=== PATIENT | male | born 1930 | race Caucasian/White ===

== ENCOUNTER 2016-11-19 06:33 | Emergency (ER) | payer OTHER ==
[~2016-11-19] VITALS: Ht 180.3 cm; Wt 103.1 kg
[2016-11-19 08:50] LABS: HEMATOCRIT 34.7 % (38.0-50.0); MCH 25.8 PG (29.0-34.0); MCV 80.7 FL (86-99); MEAN PLAT.VOLUME 9.3 uM^3 (9.0-12.4); PLATELET COUNT 351 K/uL (156-360); RBC DIS.WIDTH-CV 14.4 % (11.8-14.6); RBC DIS.WIDTH-SD 42.4 % (39-53); WHITE BLOOD COUNT 15.2 K/uL (4.1-10.2)
[2016-11-19 08:59] LABS: CHLORIDE 104 mEq/L (99-109); POTASSIUM 3.8 mEq/L (3.7-5.4); SODIUM 138 mEq/L (136-147)
[2016-11-19 09:00] LABS: GLUCOSE 193 mg/dL (70-99)
[2016-11-19 09:02] LABS: ANION GAP 10 MEQ/L (2-14)
[2016-11-19 09:04] LABS: GFR ESTIMATE (CALCULATED) > 59 mL/min/
[2016-11-19 09:05] LABS: UREA NITROGEN (BUN) 14 mg/dL (9-23)
[2016-11-19 09:46] LABS: ADD MIUA? NO; BILIRUBIN NEGATIVE; BLOOD NEGATIVE; COLOR YELLOW ((YELLOW)); GLUCOSE (STRIP) NEGATIVE; KETONES NEGATIVE; LEUKOCYTES NEGATIVE; NITRITE NEGATIVE; PROTEIN (STRIP) NEGATIVE; UROBILINOGEN 0.2 MG/DL (0.2-1.0)
[2016-11-19] MEDS ORDERED: NIZORAL 2% CREA15 GM TP (10:57)
[2016-11-19 13:10] VITALS: BP 140/63
[2016-11-20] MEDS ORDERED: NYSTATIN15 GM TP (19:06)
[2016-11-20] MEDS ORDERED: COUMADIN4 MG PO (19:20)
[2016-11-20] MEDS ORDERED: Z-BUM113 GM TP (19:23)
[2016-11-20] MEDS ORDERED: CLARITIN10 M3 PO (19:24)
[2016-11-20] MEDS ORDERED: PROSCAR5 MG PO (19:26)
[2016-11-20] MEDS ORDERED: TYLOPHEN500 MG PO (19:26)
[2016-11-20] MEDS ORDERED: JANUVIA25 MG PO (19:27)
[2016-11-20] MEDS ORDERED: ZESTRIL10 MG PO (19:28)
[2016-11-20] MEDS ORDERED: LYRICA75 MG PO (19:29)
[2016-11-20] MEDS ORDERED: GLUCOPHAGE1000 MG PO (19:30)
[2016-11-20] MEDS ORDERED: ZOLOFT50 MG PO (19:31)
[2016-11-20] MEDS ORDERED: TRAVATAN Z5 ML BOTH EYES (19:32)
[2016-11-20] MEDS ORDERED: ULTRAM50 MG PO (19:32)
[2016-11-20] MEDS ORDERED: ERGOCALCIF50000 UNIT PO (19:36)
[2016-11-20] MEDS ORDERED: COUMADIN1 MG PO (19:37)
== END 2016-11-19 13:55 | disposition home or self-care (01) ==
LOC: EDBD 06:33 → EME 06:33
PROVIDERS: Physician Assistant
DX: S63.502A Unspecified sprain of left wrist, initial encounter (principal); B37.2 Candidiasis of skin and nail; M25.461 Effusion, right knee; W18.30XA Fall on same level, unspecified, initial encounter; Y92.129 Unspecified place in nursing home as the place of occurrence of the external cause; E11.9 Type 2 diabetes mellitus without complications; I10 Essential (primary) hypertension; Z88.0 Allergy status to penicillin
CPT/HCPCS: 73110; 80048; 81003; 85027; 85651; 99281; 99284

== ENCOUNTER 2016-11-20 13:44 | Inpatient (IN) | payer OTHER ==
[~2016-11-20] VITALS: Ht 177.8 cm; Wt 103.4 kg
[~2016-11-20 13:44] MED LIST: NIZORAL 2% CREA15 GM TP
[2016-11-20 15:59] LABS: EOSINOPHIL (%) 0.9 % (0-5); EOSINOPHIL COUNT 0.2 K/uL (0-0.3); IMMATURE GRANULOCYTE (%) 1.3 % (0.0-0.7); IMMATURE GRANULOCYTE COUNT 0.2 K/uL; INSTRUMENT ABS NEUTROPHIL CT 13.9 K/uL; LYMPHOCYTE COUNT 1.3 K/uL (1.0-2.8); MCH 25.7 PG (29.0-34.0); MCHC 31.9 G/DL (30.0-36.0); MCV 80.4 FL (86-99); MEAN PLAT.VOLUME 9.1 uM^3 (9.0-12.4); MONOCYTE (%) 9.6 % (3-12); MONOCYTE COUNT 1.7 K/uL (0-0.8); NEUTROPHIL (%) 80.6 % (45-76); NEUTROPHIL COUNT 13.9 K/uL (1.8-6.4); PLATELET COUNT 364 K/uL (156-360); RBC DIS.WIDTH-CV 14.6 % (11.8-14.6); RBC DIS.WIDTH-SD 42.6 % (39-53); RED BLOOD COUNT 4.48 M/uL (4.00-5.50); WHITE BLOOD COUNT 17.2 K/uL (4.1-10.2)
[2016-11-20 16:10] LABS: CHLORIDE 102 mEq/L (99-109); POTASSIUM 3.8 mEq/L (3.7-5.4); SODIUM 136 mEq/L (136-147)
[2016-11-20 16:11] LABS: GLUCOSE 187 mg/dL (70-99)
[2016-11-20 16:13] LABS: ANION GAP 11 MEQ/L (2-14)
[2016-11-20 16:15] LABS: GFR ESTIMATE (CALCULATED) > 59 mL/min/
[2016-11-20 16:16] LABS: UREA NITROGEN (BUN) 14 mg/dL (9-23)
[2016-11-20 16:20] LABS: TROP-I INTERPRETATION NEGATIVE; TROPONIN-I < 0.01 ng/mL (0.0-0.30)
[2016-11-20 16:56] LABS: ADD MIUA? YES; BILIRUBIN NEGATIVE; BLOOD SMALL; COLOR AMBER ((YELLOW)); GLUCOSE (STRIP) NEGATIVE; KETONES NEGATIVE; LEUKOCYTES MODERATE; NITRITE NEGATIVE; PROTEIN (STRIP) 100; SPECIFIC GRAVITY 1.023 (1.000-1.030)
[2016-11-20 17:38] LABS: BACTERIA 3+ /HPF; EPITHELIAL CELLS RARE /HPF; MUCUS 4+ /LPF; RED BLOOD CELLS 0-5 /HPF (0-5); WHITE BLOOD CELLS TNTC /HPF (0-5); WHITE BLOOD CELLS CLUMP MANY /HPF (0-5)
[2016-11-20] MEDS ORDERED: NYSTATIN15 GM TP (19:06)
[2016-11-20] MEDS ORDERED: COUMADIN4 MG PO (19:20)
[2016-11-20] MEDS ORDERED: Z-BUM113 GM TP (19:23)
[2016-11-20] MEDS ORDERED: CLARITIN10 M3 PO (19:24)
[2016-11-20] MEDS ORDERED: TYLOPHEN500 MG PO (19:26)
[2016-11-20] MEDS ORDERED: PROSCAR5 MG PO (19:26)
[2016-11-20] MEDS ORDERED: JANUVIA25 MG PO (19:27)
[2016-11-20] MEDS ORDERED: ZESTRIL10 MG PO (19:28)
[2016-11-20] MEDS ORDERED: LYRICA75 MG PO (19:29)
[2016-11-20] MEDS ORDERED: GLUCOPHAGE1000 MG PO (19:30)
[2016-11-20] MEDS ORDERED: ZOLOFT50 MG PO (19:31)
[2016-11-20] MEDS ORDERED: ULTRAM50 MG PO (19:32)
[2016-11-20] MEDS ORDERED: TRAVATAN Z5 ML BOTH EYES (19:32)
[2016-11-20] MEDS ORDERED: ERGOCALCIF50000 UNIT PO (19:36)
[2016-11-20] MEDS ORDERED: COUMADIN1 MG PO (19:37)
[2016-11-20 19:39] LABS: TOTAL BILIRUBIN 0.4 mg/dL (0.0-1.0)
[2016-11-20 19:40] LABS: ALKALINE PHOSPHATASE 91 IU/L (3-129)
[2016-11-20 19:43] LABS: DIRECT BILIRUBIN 0.3 mg/dL (0.0-0.3)
[2016-11-20 19:48] LABS: PROTHROMBIN TIME 106.6 SEC (10.2-12.9)
[2016-11-20 19:53] LABS: INTER. NORMALIZED RATIO 8.9
[2016-11-20 20:02] LABS: CARBON DIOXIDE (BICARBONATE) 24.1 MEQ/L (20-31)
[2016-11-20 20:43] LABS: URIC ACID 4.3 mg/dL (3.1-9.2)
[2016-11-20 22:19] LABS: POINT-OF-CARE USER ID BHSKTD
[2016-11-20 23:41] VITALS: BP 139/65
[2016-11-21 03:36] VITALS: BP 137/63
[2016-11-21 07:14] LABS: ANION GAP 12 MEQ/L (2-14); CHLORIDE 104 MEQ/L (99-109); GFR ESTIMATE (CALCULATED) > 59 mL/min/; GLUCOSE 162 mg/dL (70-99); POTASSIUM 3.9 MEQ/L (3.7-5.4); SAMPLE HEMOLYSIS CHECK 0; SAMPLE ICTERIC CHECK 0; SAMPLE LIPEMIA CHECK 0; SODIUM 139 MEQ/L (136-147); UREA NITROGEN (BUN) 10 mg/dL (9-23)
[2016-11-21 07:47] LABS: BASOPHIL COUNT 0.1 K/uL (0-0.1); EOSINOPHIL (%) 1.9 % (0-5); EOSINOPHIL COUNT 0.2 K/uL (0-0.3); HEMATOCRIT 32.9 % (38.0-50.0); IMMATURE GRANULOCYTE (%) 1.2 % (0.0-0.7); IMMATURE GRANULOCYTE COUNT 0.2 K/uL; INSTRUMENT ABS NEUTROPHIL CT 9.7 K/uL; LYMPHOCYTE COUNT 1.2 K/uL (1.0-2.8); MCH 26.5 PG (29.0-34.0); MCHC 32.5 G/DL (30.0-36.0); MCV 81.4 FL (86-99); MEAN PLAT.VOLUME 9.9 uM^3 (9.0-12.4); MONOCYTE (%) 9.7 % (3-12); MONOCYTE COUNT 1.2 K/uL (0-0.8); NEUTROPHIL (%) 77.1 % (45-76); NEUTROPHIL COUNT 9.7 K/uL (1.8-6.4); PLATELET COUNT 308 K/uL (156-360); RBC DIS.WIDTH-CV 14.6 % (11.8-14.6); RBC DIS.WIDTH-SD 43.1 % (39-53); RED BLOOD COUNT 4.04 M/uL (4.00-5.50); WHITE BLOOD COUNT 12.5 K/uL (4.1-10.2)
[2016-11-21 08:44] VITALS: BP 142/70
[2016-11-21 11:24] VITALS: BP 144/78
[2016-11-21 13:06] LABS: POINT-OF-CARE METER ID UU13113717
[2016-11-21 16:17] VITALS: BP 139/77
[2016-11-21 18:21] LABS: APPEARANCE HAZY-YELLOW; MONONUCLEAR WBC'S 11 %; POLYNUCLEAR WBC'S 89 % (0-25); RED CELL COUNT 4000 /MM^3 (0-1); SYNOVIAL FLUID EOSINOPHILS 0 % (0-25); WHITE CELL COUNT 44590 /MM^3 (0-200.0)
[2016-11-21 19:21] VITALS: BP 124/71
[2016-11-21 20:51] LABS: POINT-OF-CARE METER ID UU13113717
[2016-11-21 23:55] VITALS: BP 110/67
[2016-11-22 04:14] VITALS: BP 140/81
[2016-11-22 07:17] LABS: CRYSTALS NO CRYSTALS SEEN
[2016-11-22 08:09] VITALS: BP 125/63
[2016-11-22 08:23] LABS: POINT-OF-CARE METER ID UU14174225
[2016-11-22 10:00] LABS: HEMATOCRIT 31.9 % (38.0-50.0); MCV 81.2 FL (86-99); MEAN PLAT.VOLUME 9.4 uM^3 (9.0-12.4); PLATELET COUNT 304 K/uL (156-360); RBC DIS.WIDTH-CV 14.6 % (11.8-14.6); RBC DIS.WIDTH-SD 43.6 % (39-53); RED BLOOD COUNT 3.93 M/uL (4.00-5.50); WHITE BLOOD COUNT 11.3 K/uL (4.1-10.2)
[2016-11-22 10:21] LABS: ANION GAP 9 MEQ/L (2-14); CHLORIDE 101 MEQ/L (99-109); GFR ESTIMATE (CALCULATED) > 59 mL/min/; GLUCOSE 201 mg/dL (70-99); POTASSIUM 3.6 MEQ/L (3.7-5.4); SAMPLE HEMOLYSIS CHECK 0; SAMPLE ICTERIC CHECK 0; SAMPLE LIPEMIA CHECK 0; SODIUM 134 MEQ/L (136-147); UREA NITROGEN (BUN) 9 mg/dL (9-23)
[2016-11-22 10:24] LABS: INTER. NORMALIZED RATIO 1.8
[2016-11-22 10:47] LABS: PROTHROMBIN TIME 20.6 SEC (10.2-12.9)
[2016-11-22 11:49] VITALS: BP 112/67
[2016-11-22 12:17] LABS: ERTH.SED.RATE 81 MM/HR (0-20)
[2016-11-22 14:53] LABS: C-REACTIVE PROTEIN 169.6 MG/L (0-10)
[2016-11-22 16:15] VITALS: BP 128/70
[2016-11-22 17:04] LABS: POINT-OF-CARE METER ID UU14188625
[2016-11-22 19:51] VITALS: BP 135/69
[2016-11-22 20:37] LABS: POINT-OF-CARE METER ID UU14188625
[2016-11-22 22:07] LABS: POINT-OF-CARE METER ID UU14188625
[2016-11-23 00:42] VITALS: BP 108/53
[2016-11-23 08:27] VITALS: BP 110/74
[2016-11-23 10:46] LABS: ANION GAP 9 MEQ/L (2-14); CHLORIDE 97 MEQ/L (99-109); GFR ESTIMATE (CALCULATED) > 59 mL/min/; GLUCOSE 278 mg/dL (70-99); MAGNESIUM 1.2 mg/dl (1.3-2.7); POTASSIUM 4.1 MEQ/L (3.7-5.4); SAMPLE HEMOLYSIS CHECK 0; SAMPLE ICTERIC CHECK 0; SAMPLE LIPEMIA CHECK 0; SODIUM 131 MEQ/L (136-147); UREA NITROGEN (BUN) 9 mg/dL (9-23)
[2016-11-23 12:09] LABS: INTER. NORMALIZED RATIO 1.9; PROTHROMBIN TIME 21.4 SEC (10.2-12.9)
[2016-11-23 12:14] LABS: POINT-OF-CARE METER ID UU14188625
[2016-11-23 13:51] LABS: HEMATOCRIT 31.8 % (38.0-50.0); MCH 25.8 PG (29.0-34.0); MCHC 31.8 G/DL (30.0-36.0); MCV 81.1 FL (86-99); MEAN PLAT.VOLUME 10.1 uM^3 (9.0-12.4); PLATELET COUNT 300 K/uL (156-360); RBC DIS.WIDTH-CV 14.6 % (11.8-14.6); RBC DIS.WIDTH-SD 42.5 % (39-53); RED BLOOD COUNT 3.92 M/uL (4.00-5.50); WHITE BLOOD COUNT 12.3 K/uL (4.1-10.2)
[2016-11-23 16:04] VITALS: BP 112/65
[2016-11-23 17:40] LABS: POINT-OF-CARE METER ID UU14174225
[2016-11-23 21:07] VITALS: BP 124/64
[2016-11-23 21:36] LABS: POINT-OF-CARE METER ID UU14174225
[2016-11-24] VITALS (7 sets, daily range): BP systolic 127–147; BP diastolic 64–77
[2016-11-24 06:07] LABS: EOSINOPHIL COUNT 0.3 K/uL (0-0.3); HEMATOCRIT 29.7 % (38.0-50.0); IMMATURE GRANULOCYTE (%) 1.3 % (0.0-0.7); IMMATURE GRANULOCYTE COUNT 0.1 K/uL; INSTRUMENT ABS NEUTROPHIL CT 8.3 K/uL; MCH 26.9 PG (29.0-34.0); MCHC 33.7 G/DL (30.0-36.0); MCV 79.8 FL (86-99); MEAN PLAT.VOLUME 9.7 uM^3 (9.0-12.4); MONOCYTE (%) 10.2 % (3-12); MONOCYTE COUNT 1.1 K/uL (0-0.8); NEUTROPHIL (%) 76.3 % (45-76); NEUTROPHIL COUNT 8.3 K/uL (1.8-6.4); PLATELET COUNT 285 K/uL (156-360); RBC DIS.WIDTH-CV 14.5 % (11.8-14.6); RED BLOOD COUNT 3.72 M/uL (4.00-5.50); WHITE BLOOD COUNT 10.8 K/uL (4.1-10.2)
[2016-11-24 06:19] LABS: INTER. NORMALIZED RATIO 1.9; PROTHROMBIN TIME 21.2 SEC (10.2-12.9)
[2016-11-24 06:36] LABS: ALKALINE PHOSPHATASE 112 IU/L (3-129); ANION GAP 8 MEQ/L (2-14); CHLORIDE 100 MEQ/L (99-109); GFR ESTIMATE (CALCULATED) > 59 mL/min/; GLUCOSE 195 mg/dL (70-99); POTASSIUM 3.8 MEQ/L (3.7-5.4); SAMPLE HEMOLYSIS CHECK 0; SAMPLE ICTERIC CHECK 0; SAMPLE LIPEMIA CHECK 0; SODIUM 131 MEQ/L (136-147); TOTAL BILIRUBIN 0.6 MG/DL (0.0-1.0); UREA NITROGEN (BUN) 10 mg/dL (9-23)
[2016-11-24 07:30] LABS: POINT-OF-CARE METER ID UU14188625
[2016-11-24 12:06] LABS: APPEARANCE HAZY-YELLOW; MONONUCLEAR WBC'S 1 %; POLYNUCLEAR WBC'S 99 % (0-25); RED CELL COUNT 7000 /MM^3 (0-1); SYNOVIAL FLUID EOSINOPHILS 0 % (0-25); WHITE CELL COUNT 7373 /MM^3 (0-200.0)
[2016-11-25 03:42] VITALS: BP 133/71
[2016-11-25 06:47] LABS: EOSINOPHIL (%) 3.5 % (0-5); EOSINOPHIL COUNT 0.3 K/uL (0-0.3); HEMATOCRIT 30.4 % (38.0-50.0); IMMATURE GRANULOCYTE COUNT 0.1 K/uL; INSTRUMENT ABS NEUTROPHIL CT 6.5 K/uL; LYMPHOCYTE COUNT 0.8 K/uL (1.0-2.8); MCH 26.6 PG (29.0-34.0); MCHC 32.9 G/DL (30.0-36.0); MCV 80.9 FL (86-99); MEAN PLAT.VOLUME 9.5 uM^3 (9.0-12.4); MONOCYTE (%) 10.4 % (3-12); MONOCYTE COUNT 0.9 K/uL (0-0.8); NEUTROPHIL (%) 75.7 % (45-76); NEUTROPHIL COUNT 6.5 K/uL (1.8-6.4); PLATELET COUNT 271 K/uL (156-360); RBC DIS.WIDTH-CV 14.7 % (11.8-14.6); RBC DIS.WIDTH-SD 43.6 % (39-53); RED BLOOD COUNT 3.76 M/uL (4.00-5.50); WHITE BLOOD COUNT 8.6 K/uL (4.1-10.2)
[2016-11-25 06:57] LABS: PROTHROMBIN TIME 22.9 SEC (10.2-12.9)
[2016-11-25 07:13] LABS: ALKALINE PHOSPHATASE 120 IU/L (3-129); ANION GAP 8 MEQ/L (2-14); CHLORIDE 100 MEQ/L (99-109); GFR ESTIMATE (CALCULATED) > 59 mL/min/; GLUCOSE 180 mg/dL (70-99); POTASSIUM 3.7 MEQ/L (3.7-5.4); SAMPLE HEMOLYSIS CHECK 0; SAMPLE ICTERIC CHECK 0; SAMPLE LIPEMIA CHECK 0; SODIUM 133 MEQ/L (136-147); UREA NITROGEN (BUN) 9 mg/dL (9-23)
[2016-11-25 07:14] LABS: TOTAL BILIRUBIN 0.4 MG/DL (0.0-1.0)
[2016-11-25 07:38] LABS: POINT-OF-CARE METER ID UU14188625
[2016-11-25 07:39] VITALS: BP 139/75
[2016-11-25 11:11] LABS: IMM.RETIC FRACTION 24.5 % (3-19); RETIC HGB EQUIVALENT 27.5 (28-36); RETICULOCYTE COUNT 1.6 % (0.5-1.8)
[2016-11-25 11:19] LABS: POINT-OF-CARE METER ID UU14188625
[2016-11-25 11:23] VITALS: BP 141/87
[2016-11-25 11:30] LABS: FERRITIN 803 NG/ML (22-322); IRON 14 MCG/DL (35-150); MAGNESIUM 1.6 mg/dl (1.3-2.7)
[2016-11-25 15:30] VITALS: BP 174/84
[2016-11-25 19:43] VITALS: BP 133/74
[2016-11-25 21:10] LABS: POINT-OF-CARE METER ID UU14188625
[2016-11-26] VITALS (7 sets, daily range): BP systolic 124–150; BP diastolic 65–85
[2016-11-26 05:53] LABS: EOSINOPHIL (%) 0 % (0-5); HEMATOCRIT 31.6 % (38.0-50.0); IMMATURE GRANULOCYTE (%) 0.6 % (0.0-0.7); INSTRUMENT ABS NEUTROPHIL CT 5.4 K/uL; LYMPHOCYTE COUNT 0.5 K/uL (1.0-2.8); MCH 26.3 PG (29.0-34.0); MCHC 32.3 G/DL (30.0-36.0); MCV 81.4 FL (86-99); MEAN PLAT.VOLUME 9.8 uM^3 (9.0-12.4); MONOCYTE (%) 5.6 % (3-12); MONOCYTE COUNT 0.4 K/uL (0-0.8); NEUTROPHIL (%) 85.5 % (45-76); NEUTROPHIL COUNT 5.4 K/uL (1.8-6.4); PLATELET COUNT 281 K/uL (156-360); RBC DIS.WIDTH-CV 14.7 % (11.8-14.6); RBC DIS.WIDTH-SD 43.1 % (39-53); RED BLOOD COUNT 3.88 M/uL (4.00-5.50); WHITE BLOOD COUNT 6.3 K/uL (4.1-10.2)
[2016-11-26 06:29] LABS: INTER. NORMALIZED RATIO 2.4; PROTHROMBIN TIME 27.1 SEC (10.2-12.9)
[2016-11-26 06:45] LABS: ALKALINE PHOSPHATASE 139 IU/L (3-129); ANION GAP 9 MEQ/L (2-14); CHLORIDE 102 MEQ/L (99-109); GFR ESTIMATE (CALCULATED) > 59 mL/min/; SAMPLE HEMOLYSIS CHECK 0; SAMPLE ICTERIC CHECK 0; SAMPLE LIPEMIA CHECK 0; SODIUM 133 MEQ/L (136-147); TOTAL BILIRUBIN 0.4 MG/DL (0.0-1.0); UREA NITROGEN (BUN) 16 mg/dL (9-23)
[2016-11-26 06:48] LABS: GLUCOSE 279 mg/dL (70-99); POTASSIUM 4.6 MEQ/L (3.7-5.4)
[2016-11-26 11:39] LABS: Estimated Average Glucose 197 mg/dL (70-123); HEMOGLOBIN A1c (GLYCOHEMOGLOB) 8.5 % HGB (Below 5.7)
[2016-11-26 16:10] LABS: POINT-OF-CARE METER ID UU13113717
[2016-11-26 21:46] LABS: POINT-OF-CARE METER ID UU13113717
[2016-11-27 03:58] VITALS: BP 143/86
[2016-11-27 06:41] LABS: EOSINOPHIL (%) 1.2 % (0-5); EOSINOPHIL COUNT 0.1 K/uL (0-0.3); HEMATOCRIT 30.9 % (38.0-50.0); IMMATURE GRANULOCYTE COUNT 0.1 K/uL; LYMPHOCYTE COUNT 1.1 K/uL (1.0-2.8); MCH 25.5 PG (29.0-34.0); MCHC 31.1 G/DL (30.0-36.0); MEAN PLAT.VOLUME 9.8 uM^3 (9.0-12.4); MONOCYTE (%) 8.3 % (3-12); MONOCYTE COUNT 0.9 K/uL (0-0.8); NEUTROPHIL (%) 78.1 % (45-76); PLATELET COUNT 329 K/uL (156-360); RBC DIS.WIDTH-CV 14.8 % (11.8-14.6); RBC DIS.WIDTH-SD 44.1 % (39-53); RED BLOOD COUNT 3.77 M/uL (4.00-5.50); WHITE BLOOD COUNT 10.2 K/uL (4.1-10.2)
[2016-11-27 07:05] LABS: INTER. NORMALIZED RATIO 3.2; PROTHROMBIN TIME 37.3 SEC (10.2-12.9)
[2016-11-27 07:12] LABS: ALKALINE PHOSPHATASE 109 IU/L (3-129); ANION GAP 10 MEQ/L (2-14); C-REACTIVE PROTEIN 56.1 MG/L (0-10); CHLORIDE 100 MEQ/L (99-109); GFR ESTIMATE (CALCULATED) > 59 mL/min/; GLUCOSE 202 mg/dL (70-99); POTASSIUM 4.2 MEQ/L (3.7-5.4); SAMPLE HEMOLYSIS CHECK 0; SAMPLE ICTERIC CHECK 0; SAMPLE LIPEMIA CHECK 0; SODIUM 134 MEQ/L (136-147); UREA NITROGEN (BUN) 19 mg/dL (9-23)
[2016-11-27 07:13] LABS: TOTAL BILIRUBIN 0.3 MG/DL (0.0-1.0)
[2016-11-27 07:57] VITALS: BP 157/78
[2016-11-27 08:20] LABS: POINT-OF-CARE METER ID UU14188625
[2016-11-27 11:21] VITALS: BP 154/72
[2016-11-27] MEDS ORDERED: Lidoderm 5% Patch TD (12:03)
[2016-11-27] MEDS ORDERED: PREDNISONE10 MG PO (12:04)
[2016-11-27 16:02] VITALS: BP 155/77
== END 2016-11-27 16:58 | DRG 872 ==
LOC: EME 13:44 → 5SOUTH 19:23 → EDOF 19:23 → ENRESERV 19:27 → 5SOUTH 20:58
PROVIDERS: Emergency Medicine; Hospitalist; Internal Medicine; Orthopaedic Surgery; Physician Assistant; Physician Assistant Medical
PROC: 0S9C3ZZ Drainage of Right Knee Joint, Percutaneous Approach (ICD-10-PCS; principal; 2016-11-21)
DX: A41.9 Sepsis, unspecified organism (principal); N39.0 Urinary tract infection, site not specified; D68.9 Coagulation defect, unspecified; I48.2 Chronic atrial fibrillation; E11.65 Type 2 diabetes mellitus with hyperglycemia; D64.9 Anemia, unspecified; E86.0 Dehydration; B37.9 Candidiasis, unspecified; N40.0 Benign prostatic hyperplasia without lower urinary tract symptoms; I50.9 Heart failure, unspecified; I11.0 Hypertensive heart disease with heart failure; L89.212 Pressure ulcer of right hip, stage 2; B36.9 Superficial mycosis, unspecified; J98.11 Atelectasis; E78.5 Hyperlipidemia, unspecified; M17.11 Unilateral primary osteoarthritis, right knee; W19.XXXA Unspecified fall, initial encounter; I45.10 Unspecified right bundle-branch block; J32.0 Chronic maxillary sinusitis; F03.90 Unspecified dementia, unspecified severity, without behavioral disturbance, psychotic disturbance, mood disturbance, and anxiety; M11.261 Other chondrocalcinosis, right knee; M06.4 Inflammatory polyarthropathy; H40.9 Unspecified glaucoma; Z79.4 Long term (current) use of insulin; Z79.01 Long term (current) use of anticoagulants; Z79.84 Long term (current) use of oral hypoglycemic drugs; Z79.899 Other long term (current) drug therapy; Z72.0 Tobacco use; Z95.0 Presence of cardiac pacemaker; Z68.33 Body mass index [BMI] 33.0-33.9, adult
CPT/HCPCS: 70450; 70496; 70498; 71010; 73110; 73502; 73552; 73564; 73590; 80048; 80053; 80076; 81003; 82607; 82728; 82746; 82803; 82948; 83036; 83540; 83605; 83735; 84466; 84484; 84550; 85025; 85027; 85045; 85610; 85651; 86140; 87040; 87086; 87205; 89051; 92610 GN; 93005; 99281; 99284; 99285; J0696; J1815; J2270; J2920; J3430; J3475; J7030; J7050; J7120; J7512

== ENCOUNTER 2017-08-04 18:49 | Emergency (ER) | payer OTHER ==
[~2017-08-04] VITALS: Ht 180.3 cm; Wt 96.0 kg
[~2017-08-04 18:49] MED LIST changes: +CLARITIN10 M3 PO; +COUMADIN1 MG PO; +COUMADIN4 MG PO; +ERGOCALCIF50000 UNIT PO; +GLUCOPHAGE1000 MG PO; +JANUVIA25 MG PO; +LYRICA75 MG PO; +Lidoderm 5% Patch TD; +NYSTATIN15 GM TP; +PREDNISONE10 MG PO; +PROSCAR5 MG PO; +TRAVATAN Z5 ML BOTH EYES; +TYLOPHEN500 MG PO; +ULTRAM50 MG PO; +Z-BUM113 GM TP; +ZESTRIL10 MG PO; +ZOLOFT50 MG PO
[2017-08-04] MEDS ORDERED: ZOLOFT25 MG PO (19:55)
[2017-08-04] MEDS ORDERED: PRENATAL TABLE1 EAC3 PO (19:55)
[2017-08-04] MEDS ORDERED: FEOSOL325 MG PO (19:56)
[2017-08-04] MEDS ORDERED: GLUCOPHAGE500 MG PO (19:57)
[2017-08-04] MEDS ORDERED: MELATONIN5 M1 PO (19:58)
[2017-08-04] MEDS ORDERED: COUMADIN5 MG PO (19:59)
[2017-08-04] MEDS ORDERED: MILK OF MAGN PO (20:02)
[2017-08-04] MEDS ORDERED: LIDODERM 5% P1 PATCH TD (20:04)
[2017-08-04 22:30] VITALS: BP 142/87
== END 2017-08-04 22:31 ==
LOC: EME 18:49
DX: S02.2XXA Fracture of nasal bones, initial encounter for closed fracture (principal); S00.03XA Contusion of scalp, initial encounter; S00.81XA Abrasion of other part of head, initial encounter; M17.11 Unilateral primary osteoarthritis, right knee; W05.0XXA Fall from non-moving wheelchair, initial encounter; Y92.129 Unspecified place in nursing home as the place of occurrence of the external cause; M54.2 Cervicalgia; Z79.01 Long term (current) use of anticoagulants; E11.9 Type 2 diabetes mellitus without complications; Z79.84 Long term (current) use of oral hypoglycemic drugs; F32.9 Major depressive disorder, single episode, unspecified; G89.29 Other chronic pain; I10 Essential (primary) hypertension; I48.91 Unspecified atrial fibrillation; N40.0 Benign prostatic hyperplasia without lower urinary tract symptoms; Z88.0 Allergy status to penicillin; H40.9 Unspecified glaucoma
CPT/HCPCS: 70450; 70486; 72125; 73564; 99281; 99284